=== PATIENT | female | born 1950 | race Caucasian/White ===

== ENCOUNTER 2022-06-20 09:35 | Day surgery (SDC) | payer MEDICARE ==
[2022-06-13 15:27] LABS: MEAN CORPUSCULAR VOLUME 94.8 FL (78-98); MONOCYTES # (AUTO) 0.4 X10'3 (0-0.9); PRE OP HEMOGLOBIN 12.6 g/dL (12.0-16.0)
[2022-06-13 15:29] LABS: EOSINOPHILS # (AUTO) 0.1 X10'3 (0-0.9); LYMPHOCYTES % (AUTO) 46.2 % (21-51); MEAN CORPUSCULAR HEMOGLOBIN 31.9 PG (27.0-31.0); MEAN CORPUSCULAR HGB CONC 33.6 g/dL (33.0-36.5); MEAN PLATELET VOLUME 10.5 FL (7.4-10.4); MONOCYTES % (AUTO) 8.7 % (2-12); NEUTROPHILS # (AUTO) 1.8 X10'3 (1.8-7.7); NEUTROPHILS % (AUTO) 41.1 % (42-75); PRE OP HEMATOCRIT 37.6 % (35.0-45.0); PRE OP PLATELET COUNT 211 X10'3 (140-440); RED BLOOD COUNT 3.97 X10'6 (4.20-5.60); RED CELL DISTRIBUTION WIDTH 15.4 % (11.5-14.5)
[2022-06-13 15:34] LABS: ALBUMIN 3.8 G/DL (3.4-5.0); ALBUMIN/GLOBULIN RATIO 1.2 (1.1-1.5); ALKALINE PHOSPHATASE 99 IU/L (46-116); BLOOD UREA NITROGEN 19 MG/DL (7-18); BUN/CREATININE RATIO 21.1 (6.6-38.0); CALCIUM 9.3 MG/DL (8.5-10.1); CHLORIDE 104 MMOL/L (99-107); PRE OP ALT 32 U/L (30-65); PRE OP ANION GAP 7 (8-16); PRE OP AST 19 U/L (10-37); PRE OP BILIRUB, TOTAL 0.3 MG/DL (0.0-1.0); PRE OP GLUCOSE 89 MG/DL (70-104); PRE OP POTASSIUM 3.7 MMOL/L (3.4-5.1); PRE OP SODIUM 142 MMOL/L (135-145); TOTAL CARBON DIOXIDE 31.1 MMOL/L (24-32); TOTAL PROTEIN 7.1 G/DL (6.4-8.2); eGFR 62 ML/MIN
[~2022-06-20] VITALS: Ht 157.5 cm; Wt 67.5 kg
[2022-06-20] VITALS (10 sets, daily range): BP systolic 103–146; BP diastolic 61–98
[~2022-06-20 09:35] MED LIST: ALBU8.5H17 INH; BIOT5000 PO; CALC-854 PO; CRAN450T4 PO; GLUC1CAP36 PO; HYDR-3686 PO; HYDR12.55 PO; LOVA20TA2 PO; MAGN100T6 PO; MONT-40 PO; MULT-1085 PO; OMEG10006 PO; SERUM TEARS OP; VIT1CAPS46 PO; VITA-321 PO; ceFAZolin inj. 2,000 MG in dextrose 5%-water 100 ML IV ONE; famotidine 20mg tablet PO ONE; ringers solution, lacted 1,000 ML IV SCH
[2022-06-20] MEDS ORDERED: TETRACAINE 0.5% 4 ML OPHTHALMIC DROPS ONE (11:06)
[2022-06-20] MEDS ORDERED: LIDOCAINE 1%/EPI 1:100,000 inj. 10 ML multi-dose vial ONE (11:07)
[2022-06-20] MEDS ORDERED: fentaNYL/PF 50MCG/1 ML 2ML syringe ONE (11:24)
[2022-06-20] MEDS ORDERED: midazolam 1 mg/ML 2ml injection ONE (11:24)
[2022-06-20] MEDS ORDERED: propofol inj 20 ML IV ONE ×2 (11:37)
--- NOTE | 2022-06-20 12:10 | NUR ---
Received from OR via OTF, accompanied by Anesthesiologist and report given by ROSAURA Anesthesiologist. PATIENT WAKING UP, DENIES PAIN, VSS, 20G PIV TO R FOREARM, BILATERAL UPPER LID SUTURES DRESSING C/D/I. Addendum: 06/20/22 at 1303 by Bart Snyder RN Amended: Links added.
--- NOTE | 2022-06-20 13:20 | NUR ---
ALL DISCHARGE CRITERIA HAS BEEN MET. VSS, PAIN AT A TOLERABLE LEVEL, VOIDING AND ABLE TO SAFELY AMBULATE AND TRANSFER SELF. IV TAKEN OUT WITHOUT ANY COMPLICATIONS. ALL DISCHARGE INSTRUCTIONS COVERED WITH PATIENT AND ALL QUESTIONS ANSWERED. PATIENT TAKEN OUT VIA WHEELCHAIR WITH ALL BELONGINGS TO PERSONAL VEHICLE WHERE FRIEND DROVE PATIENT HOME. Addendum: 06/20/22 at 1326 by Bart Snyder RN Amended: Links added.
[2022-06-20] MEDS ORDERED: ringers solution, lacted 1,000 ML IV SCH (13:45)
== END 2022-06-20 13:20 | disposition home or self-care (01) ==
LOC: PAS 09:35
PROVIDERS: ATTEND Specialist
DX: H02.831 Dermatochalasis of right upper eyelid (principal); H02.834 Dermatochalasis of left upper eyelid; I10 Essential (primary) hypertension; M19.90 Unspecified osteoarthritis, unspecified site; F41.9 Anxiety disorder, unspecified; J45.909 Unspecified asthma, uncomplicated; Z79.899 Other long term (current) drug therapy; Z98.890 Other specified postprocedural states; Z88.0 Allergy status to penicillin; Z88.2 Allergy status to sulfonamides; Z88.1 Allergy status to other antibiotic agents; Z91.030 Bee allergy status
CPT/HCPCS: 15822; 80053; 82948; 85025; 87811; 93005; J0690; J2250; J2704; J3010; J3490; J7030; J7060; J7120; Z7506; Z7512; A4215; A4618; A6410; A7000